=== PATIENT | female | born 1950 | race Caucasian/White ===

== ENCOUNTER → 2018-05-18 18:37 | Outpatient (CLI) | payer MEDICARE | END | disposition home or self-care (01) | LOC: D.MAMMO 14:15 | DX: Z12.31 Encounter for screening mammogram for malignant neoplasm of breast (principal) ==

== ENCOUNTER → 2019-05-05 07:58 | Outpatient (CLI) | payer MEDICARE, BC | END | disposition home or self-care (01) | LOC: D.HCCARDIO 07:58 | PROVIDERS: ATTEND Internal Medicine Cardiovascular Disease | DX: R06.00 Dyspnea, unspecified (principal) ==

== ENCOUNTER → 2019-05-16 11:30 | Outpatient (CLI) | payer MEDICARE, BC ==
[~2019-05-16] VITALS: Ht 172.7 cm; Wt 68.2 kg
--- NOTE | ~2019-05-16 | HEMODYNAMI ---
PATIENT:DEANNA HANDY MEDICAL RECORD: [id number] : 54 [facility] DATE: 05/16/19 Generatedon:05/16/201913:59 Patient name: DEANNA HANDY Patient #: [id number] SSN: : 1950 Date of study: 05/16/2019 Page: Of Hemodynamic Procedure Report Patient Data Patient Demographics Procedure consent was obtained First Name: DEANNA Gender: Female Last Name: OLE : 1950 Patient #: [id number] Age: 69 year(s) Race: Accession #: Ethnicity: or [id number] Additional ID: [id number] Contact details Address: [address] [place] [address] State: [place] City: [facility] Zip code: [address] Past Medical History Allergies: No known allergies Admission Admission Data Admission Date: 05/16/2019 Admission Time: 11:30 Admit Source: Other Insurance Payor: Private health insurance, Medicare [facility] #: [id number] Lab Results Lab Result Date: 05/16/2019 Lab Result Time: 0:00 Biochemistry Name Units Result Min Max BUN mg/dl 12 --(-*--)-- 7 18 Creatinine mg/dl 0.8 --(-*--)-- 0.6 1.3 CBC Name Units Result Min Max Hematocrit % 40 -*(----)-- 42 54 Hemoglobin g/dl 14.5 --(*---)-- 13.5 17.5 Procedure Procedure Types Cath Procedure Diagnostic Procedure LHC LH w/Coronaries Sedation Charges Moderate Sedation up to 15 minutes Procedure Description Procedure Date Procedure Date: 05/16/2019 Procedure Start Time: 13:47 Procedure End Time: 13:57 Procedure Staff Name Function Dakota Waters MD Performing Physician Miguel Gutierrez RT Monitor Tone Rubalcava RT Scrub Kiley Nguyễn RN Nurse Indication Dyspnea with exertion Shortness of breath w/exertion Procedure Data Cath Procedure Fluoroscopy Diagnostic fluoroscopy Total fluoroscopy Time: 1 time: 1 min min Diagnostic fluoroscopy Total fluoroscopy dose: 188 dose: 188 mGy mGy Contrast Material Contrast Material Type Amount (ml) Isovue 300 52 Entry Location Entry Primary Successful Side Size Upsize Upsize Entry Closure Succes sful Closure Location (Fr) 1 (Fr) 2 (Fr) Remarks Device Remarks Femoral Right 5 Fr Exoseal artery Estimated blood loss: 5 ml Diagnostic catheters Device Type Used For End Catheter Placement MULTIPACK JL 4.0 5Fr Procedure catheter MULTIPACK 3DRC 5Fr Procedure catheter MULTIPACK Pigtail 5 Fr Procedure catheter Procedure Complications No complications Procedure Medications Medication Administration Route Dosage Oxygen etCO2 Nasal cannula 2 l/min Lidocaine 2% added to field 20 Heparin Flush Bag added to field 2 bags (1000units/500ml NS) 0.9% NaCl I.V. 100 ml/hr Versed I.V. 2 mg Fentanyl I.V. 100 mcg Versed I.V. 1 mg Fentanyl I.V. 50 mcg Versed I.V. 1 mg Fentanyl I.V. 50 mcg Hemodynamics Rest HGB: 14.5 (g/dl) Heart Rate: 107 (bpm) Pressure Samples Time Site Value (mmHg) Purpose Heart Use Rate(bpm) 13:55 LV 133/-7,6 Snapshot 104 13:55 AO 149/71(107) Pullback 92 13:55 LV 156/-3,2 Pullback 92 Gradients Valve Time Site 1 Site 2 Mean SEP/DFP Peak To Heart Use (mmHg) (sec/min) Peak Rate (mmHg) (bpm) Aortic 13:55 LV AO 13 19 7 92 156/-3,2 149/71(107) Calculations Valve P-P Mean Valve Index Valve Source Name Gradient Area Flow (cm2) Aortic 7 13 7 13 Snapshots Pre Cath Intra NCS Post Cath Vital Signs Time Heart Resp SPO2 etCO2 NIBP (mmHg) Rhythm Pain Sedation Rate (ipm) (%) (mmHg) Status Level (bpm) 13:38:45 105 24 100 38.9 153/76(106) NSR 0 (11) 10(A) , No pain 13:42:59 93 11 96 39.6 117/62(87) NSR 0 (11) 10(A) , No pain 13:47:13 96 10 97 0.7 113/59(79) NSR 0 (11) 9(A) , No pain 13:51:27 96 19 97 8.9 119/58(82) NSR 0 (11) 9(A) , No pain 13:55:33 100 15 98 45.7 115/67(73) NSR 0 (11) 10(A) , No pain Medications Time Medication Route Dose Verified Delivered Reason Notes Eff ectiveness by by 13:30:43 Oxygen etCO2 2 Dakota Buffie used for Nasal l/min Jt Nguyễn RN procedure cannula 13:41:52 Lidocaine 2% added 20ml Dakota Dakota for local to vial Jt Waters MD anesthetic field 13:41:58 Heparin Flush added 2 Dakota Dakota used for Bag to bags Jt Waters MD procedure (1000units/500ml field NS) 13:42:07 0.9% NaCl I.V. 100 Dakota Buffie Per ml/hr Jt Nguyễn RN physician 13:42:16 Versed I.V. 2 mg Dakota Buffie for Jt Nguyễn RN sedation 13:42:23 Fentanyl I.V. 100 Dakota Buffie for mcg Jt Nguyễn RN sedation 13:48:08 Versed I.V. 1 mg Dakota Buffie for Jt Nguyễn RN sedation 13:48:13 Fentanyl I.V. 50 Dakota Buffie for mcg Jt Nguyễn RN sedation 13:52:36 Versed I.V. 1 mg Dakota Buffie for Jt Nguyễn RN sedation 13:52:39 Fentanyl I.V. 50 Dakota Buffie for mcg Jt Nguyễn RN sedation Procedure Log Time Note 13:15:06 Kiley Nguyễn RN sent for patient. Start room use. 13:25:05 Diagnostic Cath Status : Elective 13:27:16 Indication : Dyspnea with exertion 13:27:22 Indication : Shortness of breath w/exertion 13:27:50 Admit Source: Other 13:27:57 Insurance Payor : Private health insurance, Medicare 13:30:43 Oxygen 2 l/min etCO2 Nasal cannula was administered by Kiley Nguyễn RN; used for procedure; 13:37:02 ACC Patient presents with Unstable Angina CCS Anginal Class 3--Marked limitation of physical activity, angina occurs with ordinary activity.. 13:37:04 Procedure Status Elective Heart Cath (OP). 13:37:16 Time tracking: Regular hours (M-F 7:00 - 5:00) 13:37:20 Plan of Care:Hemodynamics will remain stable., Cardiac rhythm will remain stable., Comfort level will be maintained., Respiratory function will remain adequate., Patient/ family verbilizes understanding of procedure., Procedure tolerated without complication., Recovers from procedure without complications.. 13:37:24 Patient received from Pre/Post Procedure Room to CCL 1 Alert and oriented. Tansferred to table in Supine position. 13:37:26 Signed procedure consent form obtained from patient. 13:37:27 Warm blankets applied, and eugenio hugger turned on for patient comfort. 13:37:27 Correct patient and procedure confirmed by team. 13:37:27 ECG and BP/O2 sat monitors applied to patient. 13:37:28 Vital chart was started 13:37:29 Baseline sample Acquired. 13:37:33 Rhythm: sinus tachycardia 13:37:34 Full Disclosure recording started 13:37:43 H&P Date Dictated: 05/05/2019 Within 30 days and on chart., H&P Addendum completed by physician on day of procedure. (MUST COMPLETE FOR ALL OUTPATIENTS). 13:37:44 Pre-procedure instructions explained to patient. 13:37:45 Pre-op teaching completed and patient verbalized understanding. 13:37:46 Family in waiting room. 13:37:47 Patient NPO since Midnight. 13:37:57 Patient allergic to No known allergies 13:38:02 Is the patient allergic to Iodine/contrast media? No. 13:38:03 Is patient on blood thinner?No 13:38:04 Patient diabetic? No. 13:38:06 Previous problem with sedation/anesthesia? No ? 13:38:07 Snore? No 13:38:08 Sleep apnea? No 13:38:09 Deviated septum? No 13:38:10 Opens mouth fully? Yes 13:38:10 Sticks out tongue? Yes 13:38:12 Airway obstruction? No ? 13:38:13 Dentures? No ? 13:38:16 Pre procedure: right dorsailis pedis pulse 2+ Normal; easily identifiable; not easily obliterated 13:38:18 Modified Estiven's test Ulnar < 7 seconds 13:38:19 Patient pain scale 0/10 ?. 13:38:22 IV patent on arrival in left forearm with 0.9% NaCl at [facility]. 13:39:37 Lab Result : BUN 12 mg/dl 13:39:37 Lab Result : Hemoglobin 14.5 g/dl 13:39:37 Lab Result : Creatinine 0.8 mg/dl 13:39:37 Lab Result : Hematocrit 40 % 13:39:40 Lab results completed and on chart. 13:39:42 Right groin area was prepped with chlora-prep and draped in sterile fashion 13:39:43 Alarms reviewed by R. N. 13:39:44 Sharps counted by scrub and verified by R.N. 13:39:47 ACIST Syringe (71936) opened to sterile field. 13:39:48 Medline Cath Pack ([id number]) opened to sterile field. 13:39:48 Bag Decanter (2002S) opened to sterile field. 13:39:48 ACIST Hand Control (00016) opened to sterile field. 13:39:48 ACIST Manifold (56477) opened to sterile field. 13:39:49 Tegaderm 4 x 4 (1626W) opened to sterile field. 13:39:57 Physician arrived 13:39:58 --------ALL STOP TIME OUT------ 13:39:58 Final Timeout: patient, procedure, and site verified with staff and physician. All members of the team are in agreement. 13:41:04 Use device set Femoral Dx 13:41:07 DIAGNOSTIC Multipack 5Fr catheter set ([id number]) opened to sterile field. 13:41:16 SHEATH 5FR Ferguson (CXO460) opened to sterile field. 13:41:18 EMERALD Guide Wire (951-133) opened to sterile field. 13:41:52 Lidocaine 2% 20ml vial added to field was administered by Dakota Waters MD; for local anesthetic; 13:41:58 Heparin Flush Bag (1000units/500ml NS) 2 bags added to field was administered by Dakota Waters MD; used for procedure; 13:42:07 0.9% NaCl 100 ml/hr I.V. was administered by Kiley Nguyễn RN; Per physician; 13:42:13 Right groin site verified by team. 13:42:16 Versed 2 mg I.V. was administered by Kiley Nguyễn RN; for sedation; 13:42:16 Fire Safety Assessment: A--An alcohol-based skin anteseptic being used preoperatively., C--Open oxygen or nitrous oxide is being used., D--An ESU, laser, or fiber-optic light is being used. 13:42:18 Physical assessment completed. ASA score P 2 - A patient with mild systemic disease as per Dakota Waters MD. 13:42:23 Fentanyl 100 mcg I.V. was administered by Kiley Nguyễn RN; for sedation; 13:42:27 2) 60-89 Mildly reduced kidney function, and other findings (as for stage 1) point to kidney disease. 13:42:56 Sedation plan: IV Moderate Sedation Medication:Versed, Fentanyl 13:42:59 Maximum allowable contrast dose (3.7 X eGFR X 0.75)210 ml. 13:44:23 Zero performed for pressure channel P1 13:47:50 Procedure started. 13:47:53 Local anesthetic to right femoral artery with Lidocaine 2% by Dakota Waters MD.INITIAL ACCESS ONLY 13:48:08 Versed 1 mg I.V. was administered by Kiley Nguyễn RN; for sedation; 13:48:13 Fentanyl 50 mcg I.V. was administered by Kiley Nguyễn RN; for sedation; 13:50:46 A 5 Fr sheath was inserted into the Right Femoral artery 13:50:55 A MULTIPACK JL 4.0 5Fr catheter was advanced over the wire and used for Procedure. 13:51:44 LCA angiography performed. 13:52:36 Versed 1 mg I.V. was administered by Kiley Nguyễn RN; for sedation; 13:52:39 Fentanyl 50 mcg I.V. was administered by Kiley Nguyễn RN; for sedation; 13:52:45 Catheter exchanged over wire. 13:52:52 A MULTIPACK 3DRC 5Fr catheter was advanced over the wire and used for Procedure. 13:53:50 RCA angiography performed. 13:53:58 ACCDominant side:Co-Dominant 13:54:05 Catheter exchanged over wire. 13:54:12 A MULTIPACK Pigtail 5 Fr catheter was advanced over the wire and used for Procedure. 13:54:56 EXOSEAL 5Fr (EX500) opened to sterile field. 13:55:31 LV gram done using SHAIKH 13:55:34 Injector settings: Ml/sec: 10, Volume: 20, 13:55:35 LV hemodynamics recorded. 13:55:39 EF : 60 % 13:55:47 Catheter removed. 13:55:53 Sheath removed intact; hemostasis achieved with Exoseal to the Right Femoral artery. 13:55:56 Procedure ended.(Physican Out) 13:56:07 Fluoroscopy time 01.00 minutes. 13:56:11 Fluoroscopy dose: 188 mGy 13:56:11 Flurop Dose total: 188 13:56:16 Dose Area Product 8413 mGy/cm. 13:56:19 Contrast amount:Isovue 300 52ml. 13:56:22 Maximum allowable dose exceeded? No. 13:56:23 Sharps counted by scrub and verified by R.N. 13:56:23 Insertion/operative site no bleeding no hematoma. 13:56:25 Post-op/insertion site Right Femoral artery dressed using a 4 x 4 and Tegaderm. 13:56:28 Post right femoral artery:stable, soft, clean and dry 13:56:30 Post Procedure Pulses reassessed and unchanged 13:56:32 Post-procedure physical assessment completed. ASA score P 2 - A patient with mild systemic disease as per Dakota Waters MD. 13:56:33 Post procedure rhythm: unchanged. 13:56:36 Estimated blood loss: 5 ml 13:56:37 Post procedure instruction explained to patient.Patient verbalizes understanding. 13:56:38 Patient needs reinforcement of post procedure teaching. 13:56:51 Procedure type changed to Cath procedure, Diagnostic procedure, LHC, LHC w/Coronaries, Sedation Charges, Moderate Sedation up to 15 minutes 13:57:01 Procedure and supply charges have been captured, reviewed, submitted and are correct. 13:57:03 Procedure Complication : No complications 13:57:05 Vital chart was stopped 13:57:05 See physician's report for complete and final results. 13:57:07 Report given to Pre/Post Procedure Room. 13:57:09 Patient transfered to Pre/Post Procedure Room with Stretcher. 13:57:10 Procedure ended. 13:57:10 Full Disclosure recording stopped 13:57:14 End room use (Document Last) Device Usage Item Name Manufacture Quantity Catalog Hospital Part Current Minimal L ot# / Number Charge Number Stock Stock Serial# Code ACIST Acist 1 48607 123283 454301 140151 20 Greenscreen Animals46768) Systems Inc Medline Medline 1 [id number] 741527 28638 354594 5 Cath Pack ([id number]) Bag Microtek 1 664626 34155 331927 5 Decanter Medical Inc. () ACIST Hand Acist 1 02242 705028 722244 230054 5 Control Medical (23369) Systems Inc ACIST Acist 1 49886 353436 762143 278868 5 Manifold Medical (37739) Systems Inc Tegaderm 4 3M 1 1626W 992901 672138 496812 5 x 4 (1626W) DIAGNOSTIC Cardinal 1 [id number] 598954 97032 876930 30 eBreviaack Health 5Fr catheter set (UW8564) SHEATH 5FR Terumo 1 IWA099 933927 811563 251558 5 Ferguson (PLW701) EMERALD Cardinal 1 201-383 480436 188832 489104 5 Guide Wire Health (416-063) MULTIPACK Cardinal 1 693509 5 JL 4.0 5Fr Health catheter MULTIPACK Cardinal 1 870160 5 3DRC 5Fr Health catheter MULTIPACK Cardinal 1 001148 5 Pigtail 5 Health Fr catheter EXOSEAL 5Fr Cardinal 1 EX500 511888 282783 935552 10 (EX500) Health Signature Audit [place] Stage Time Signature Unsigned Intra-Procedure 05/16/2019 Miguel Gutierrez 1:59:45 PM RT(R) Signatures Performing Physician : Signature : Dakota Waters MD Date : Time : Monitor : Miguel Gutierrez RT Signature : Date : Time : Nurse : Kiley Nguyễn RN Signature : Date : Time : [facility] [address] [place] [address]
[~2019-05-16 11:30] MED LIST: LIPITOR20 MG PO
[2019-05-16 11:57] VITALS: BP 163/65; Ht 172.7 cm; Wt 68.2 kg
[2019-05-16 12:30] LABS: BASOPHILS 0.1 % (0-2); EOSINOPHILS 0.2 % (0-7); HEMOGLOBIN 14.5 g/dL (12-16); IMMATURE GRANULOCYTES 0.1 % (0-5); LYMPHOCYTES 25.7 % (15-50); MCHC 36.3 g/dL (31.0-37.0); MCV 91.1 fL (80.0-100.0); MEAN PLATELET VOLUME 11.1 fL (7.4-10.4); MONOCYTES 6.9 % (2-11); PLATELET COUNT 260 10x3/uL (130-400); RBC 4.39 10x6/uL (4.00-5.40); RDW 12.5 % (11.5-14.5); WBC 8.4 10x3/uL (4.8-10.8)
[2019-05-16 12:33] LABS: CALC OSMOLALITY 278 mosm/kg (275-300); CALCIUM 9.3 mg/dL (8.5-10.1); CARBON DIOXIDE 26.7 mmol/L (21.0-32.0); CHLORIDE - SERUM 104 mmol/L (98-107); CREATININE - SERUM 0.8 mg/dL (0.6-1.3); GLUCOSE 94 mg/dL (74-106); POTASSIUM - SERUM 3.5 mmol/L (3.5-5.1); SODIUM 140 mmol/L (136-145); UREA NITROGEN 12 mg/dL (7-18); eGFR NON AFRICAN AMERICAN 76 mL/min (90-120)
--- NOTE | 2019-05-16 14:10 | NUR ---
PATIENT ARRIVE TO ROOM 3, PLACED ON CM, VSS. RIGHT GROIN DRESSING IS CDI, NO S/S OF BLEEDING OR HEMATOMA.
--- NOTE | 2019-05-16 14:55 | NUR ---
PATIENT AWAKE, VSS ON ROOM AIR. HEAD OF BED ELEVATED TO 30 DEGREES, RIGHT GROIN DRESSING IS CDI, NO S/S OF BLEEDING OR HEMATOMA. NO C/O PAIN, NUMBNESS, OR TINGLING. NO N/V. TOLERATING PO FLUIDS.
--- NOTE | 2019-05-16 15:25 | NUR ---
HEAD OF BED ELEVATED TO 90 DEGREES, RIGHT GROIN DRESSING IS CDI, NO S/S OF BLEEDING OR HEMATOMA. PATIENT GIVEN SANDWICH AND SODA, NO N/V. VSS ON ROOM AIR.
--- NOTE | 2019-05-16 15:55 | NUR ---
IV REMOVED, WRITTEN AND VERBAL DISCHARGE INSTRUCTIONS GIVEN TO PATIENT AND SPOUSE, BOTH VERBALIZE UNDERSTANDING. RIGHT GROIN DRESSING IS CDI, NO S/S OF BLEEDING OR HEMATOMA. NO C/O PAIN, NUMBNESS, OR TINGLING. PATIENT VOIDED WITHOUT DIFFICULTY.
--- NOTE | 2019-05-16 16:05 | NUR ---
PATIENT TRANSPORTED TO CAR WITH SPOUSE DRIVING, ALL BELONGINGS WITH PATIENT.
== END | disposition home or self-care (01) ==
LOC: D.CATH 11:30
PROVIDERS: ATTEND Internal Medicine Cardiovascular Disease
DX: I20.9 Angina pectoris, unspecified (principal); Z01.812 Encounter for preprocedural laboratory examination

== ENCOUNTER 2019-06-01 13:30 | Outpatient (CLI) | payer MEDICARE, BC ==
[2019-05-16 11:57] VITALS: BMI 22.8
== END 2019-06-01 14:00 | disposition home or self-care (01) ==
LOC: D.MAMMO 13:30
PROVIDERS: ATTEND Family Medicine
DX: Z12.31 Encounter for screening mammogram for malignant neoplasm of breast (principal)

== ENCOUNTER → 2019-06-21 10:40 | Outpatient (CLI) | payer MEDICARE, BC ==
[2019-05-16 11:57] VITALS: BMI 22.8
== END | disposition home or self-care (01) ==
LOC: D.RT 10:40
PROVIDERS: ATTEND Internal Medicine Pulmonary Disease
DX: R06.00 Dyspnea, unspecified (principal)